=== PATIENT | male | born 2000 | race Two or more races ===

== ENCOUNTER → 2023-03-23 | Emergency (ER) | payer OTHER ==
[~2023-03-23] VITALS: Ht 180.3 cm; Wt 74.4 kg
[~2023-03-23] MED LIST: ALBUTEROL1.25 MG/3 IH; ZYRTEC5 M1 PO
== END | disposition home or self-care (01) ==
LOC: ER 15:44
DX: U07.1 COVID-19 (principal); R53.81 Other malaise; Z91.018 Allergy to other foods